=== PATIENT | male | born 1970 ===

== ENCOUNTER 2018-01-31 09:27 | Emergency (ER) | payer OTHER ==
[~2018-01-31] VITALS: Ht 182.9 cm; Wt 89.4 kg
[~2018-01-31 09:27] MED LIST: BENICAR5 MG; TENORMIN0.5 MG/ML
[2018-01-31] MEDS ORDERED: SYNTHROID100 MCG (09:53)
[2018-01-31] MEDS ORDERED: DOXYCYCLINE HY100 MG PO (12:35)
[2018-01-31] MEDS ORDERED: IBUPROFEN800 MG PO (12:35)
== END 2018-01-31 14:04 | disposition home or self-care (01) ==
LOC: ER 09:27
DX: L08.89 Other specified local infections of the skin and subcutaneous tissue (principal)

== ENCOUNTER → 2018-07-29 | Outpatient (CLI) | payer OTHER ==
[~2018-07-29] MED LIST changes: +DOXYCYCLINE HY100 MG PO; +IBUPROFEN800 MG PO; +SYNTHROID100 MCG
== END | disposition home or self-care (01) ==
LOC: SONOGRAMA 11:51
DX: E04.1 Nontoxic single thyroid nodule (principal)